=== PATIENT | male | born 1990 | race Caucasian/White ===

== ENCOUNTER 2017-09-29 18:04 | Emergency (ER) | payer OTHER ==
[2017-09-29] MEDS: LIDOCAINE 1%/EPI 30 ML INJ INJ (19:12)
[2017-09-29] MEDS: DIPHTH/TET/ACEL PERTUSS (ADULT) 0.5 ML VIAL IM* ×2 (19:12→19:16)
[2017-09-29] MEDS: HYDROCODONE/APAP (10/325) TAB PO (19:12)
== END 2017-09-29 21:20 | disposition home or self-care (01) ==
LOC: FTE 18:04
DX: S81.812A Laceration without foreign body, left lower leg, initial encounter (principal); W26.8XXA Contact with other sharp object(s), not elsewhere classified, initial encounter; Y92.9 Unspecified place or not applicable
CPT/HCPCS: 12002; 73590; 90715; 99283-25

== ENCOUNTER 2017-10-10 06:42 | Emergency (ER) | payer OTHER | END 2017-10-10 07:38 | disposition home or self-care (01) | LOC: FTE 06:42 | DX: Z48.02 Encounter for removal of sutures (principal) | CPT/HCPCS: 99281; Z7502 ==